=== PATIENT | female | born 1965 | race American Indian/Alaskan Native ===

== ENCOUNTER 2021-05-21 09:47 | Outpatient (CLI) | payer MEDICARE ==
--- NOTE | 2021-05-21 12:09 | XRay Report ---
RIGHT KNEE 2 VIEWS 10:15 INDICATION: M17.11 UNILATERAL PRIMARY OSTEOARTHRITIS,RIGHT KNEE COMPARISON: None available. FINDINGS: Mild patellofemoral degenerative changes. No obvious joint effusion. No fractures or disloc ations seen. Signer Name: Raj Garcia MD Signed: 05/21/2021 12:05 PM Workstation Name: [id number]
== END 2021-05-21 09:48 | disposition home or self-care (01) ==
LOC: XRAY 09:47
PROVIDERS: ATTEND Orthopaedic Surgery
DX: M17.11 Unilateral primary osteoarthritis, right knee (principal)